=== PATIENT | male | born 1975 | race Caucasian/White ===

== ENCOUNTER 2018-12-12 14:29 | Emergency (ER) | payer SELFPAY ==
[~2018-12-12] VITALS: Ht 172.7 cm; Wt 64.0 kg
[2018-12-12 14:40] VITALS: BP 136/87
[2018-12-12] MEDS ORDERED: SODIUM CHLORIDE 0.9% 1,000 ML IV ONE (15:00)
[2018-12-12] MEDS ORDERED: CYANOCOBALAMIN 1000MCG/ML VIAL IM ONE (15:00)
[2018-12-12] MEDS ORDERED: CHLORDIAZEPOXIDE 5 MG CAPSULE PO ONE (15:00)
== END 2018-12-12 15:15 | disposition left against medical advice (07) ==
LOC: ER 14:29
DX: S40.212A Abrasion of left shoulder, initial encounter (principal); S40.211A Abrasion of right shoulder, initial encounter; S60.812A Abrasion of left wrist, initial encounter; S60.811A Abrasion of right wrist, initial encounter; S50.312A Abrasion of left elbow, initial encounter; S50.311A Abrasion of right elbow, initial encounter; F10.129 Alcohol abuse with intoxication, unspecified; E86.0 Dehydration; R16.0 Hepatomegaly, not elsewhere classified; K70.10 Alcoholic hepatitis without ascites; H57.89 Other specified disorders of eye and adnexa; Z59.0 Homelessness; W19.XXXA Unspecified fall, initial encounter; Y93.89 Activity, other specified; Y92.89 Other specified places as the place of occurrence of the external cause; Y99.8 Other external cause status
CPT/HCPCS: 99283; J3420